=== PATIENT | male | born 1970 | race Asian ===

== ENCOUNTER 2023-12-30 11:28 | Inpatient (IN) | payer OTHER ==
[~2023-12-30] VITALS: Ht 165.1 cm; Wt 80.3 kg
[2023-12-30 11:45] VITALS: BP_SYST 149; PULSE 88; RESP 18; TEMP 98.4; O2SAT 98
[2023-12-30] MEDS: NACL 0.9% 1,000 ML IV ONE ×2 (12:16→14:11)
[2023-12-30] MEDS: KETOROLAC TROMETHAMINE 30 MG VIAL IVP ONE (12:16)
[2023-12-30] MEDS: ONDANSETRON HCL 4 MG/2 ML VIAL IVP ONE (12:16)
[2023-12-30 12:35] LABS: HEMATOCRIT 46.3 % (36-54); HEMOGLOBIN 15.9 g/dL (14.0-18.0); MEAN CORPUSCULAR HEMOGLOBIN 31 pg (27-31); MEAN CORPUSCULAR HGB CONC 35 % (32-36); MEAN CORPUSCULAR VOLUME 89 fL (79.0-98.0); PLATELET COUNT (AUTO) 272 K/uL (130-430); RED BLOOD CELL COUNT(AUTO) 5.19 MIL/uL (4.2-6.2); RED CELL DISTRIBUTION WIDTH 13.5 % (9.0-15.0); WHITE BLOOD COUNT (AUTO) 10.4 K/uL (4.8-10.8)
[2023-12-30 12:56] LABS: CALCIUM 8.9 mg/dL (8.4-11.0); CREATININE 1.33 mg/dL (0.55-1.30); POTASSIUM 3.7 mmol/L (3.5-5.1)
[2023-12-30 12:59] LABS: BILIRUBIN,DIRECT 0.2 mg/dL (0.0-0.3); TOTAL BILIRUBIN 0.7 mg/dL (0.0-1.0); TOTAL PROTEIN, SERUM 7.8 g/dL (6.4-8.3)
[2023-12-30 13:07] LABS: ALBUMIN 4.2 g/dL (3.4-4.8)
[2023-12-30] MEDS ORDERED: PIPERACILLIN/TAZOBACTAM 3.375 GM/VIAL (ZOSYN) IV ONE (13:59)
[2023-12-30 14:08] LABS: BASOPHILS % (MANUAL) 0 % (0-2); EOSINOPHILS % (MANUAL) 0 % (0-7); LYMPHOCYTES % (MANUAL) 7 % (20-46); MONOCYTES % (MANUAL) 1 % (0-11); PLATELET ESTIMATE ADEQUATE (ADEQUATE)
[2023-12-30] MEDS: PIPERACILLIN/TAZO 3.375 GM in NS 50 ML IV ONE (14:19)
[2023-12-30 14:28] LABS: BILIRUBIN,URINE NEGATIVE (NEGATIVE); CLARITY/URINE CLEAR (CLEAR); COLOR,URINE YELLOW (YELLOW); GLUCOSE,URINE NEGATIVE (NEGATIVE); KETONES,URINE 1+ (NEGATIVE); LEUKOCYTE ESTERASE ,URINE NEGATIVE (NEGATIVE); NITRITE, URINE NEGATIVE (NEGATIVE); PROTEIN URINE NEGATIVE (NEGATIVE); UROBILINOGEN,URINE 0.2 (0.2-1.0)
[2023-12-30 14:51] LABS: BLOOD, URINE TRACE (NEGATIVE)
[2023-12-30 14:52] LABS: BACTERIA,URINE None Seen /HPF (None Seen); MUCUS,URINE None Seen /LPF (None Seen); RBC,URINE 0-3 /HPF (0-3); WBC,URINE NONE SEEN /HPF (0-3)
[2023-12-30] MEDS ORDERED: MUPIROCIN 2% TOPICAL OINTMENT 22 GM NS PRN (16:15)
[2023-12-30] MEDS ORDERED: LORazepam 2 MG/ML VIAL IVP PRN (16:15)
[2023-12-30] MEDS ORDERED: ZOLPIDEM TARTRATE 5 MG TABLET PO PRN (16:15)
[2023-12-30] MEDS ORDERED: DOCUSATE SODIUM 100 MG CAPSULE PO PRN (16:15)
[2023-12-30] MEDS ORDERED: MAGNESIUM SULFATE 50 ML IV PRN (16:15)
[2023-12-30] MEDS ORDERED: ACETAMINOPHEN 500 MG TABLET PO PRN (16:45)
[2023-12-30] MEDS ORDERED: ROSU10TA29 PO (16:50)
[2023-12-30] MEDS ORDERED: LOSA50TA28 PO (16:50)
[2023-12-30] MEDS ORDERED: NEU300 PO (16:50)
[2023-12-30] MEDS: ACETAMINOPHEN 500 MG TABLET PO PRN ×2 (17:51→19:57)
[2023-12-30] MEDS: metroNIDAZOLE 500 mg/NS 100 ML IV ONE (18:05)
[2023-12-30] MEDS: NACL 0.9% 1,000 ML IV SCH (18:09)
[2023-12-30] MEDS: metroNIDAZOLE 500 mg/NS 100 ML IV SCH (22:00)
[2023-12-31] MEDS: MORPHINE 2 MG/ML INJ. SYRINGE IVP PRN (00:31)
[2023-12-31 04:07] LABS: BASOPHILS % (AUTO) 0.2 % (0.0-2.0); EOSINOPHILS % (AUTO) 0.1 % (0.0-4.0); HEMATOCRIT 37.6 % (36-54); HEMOGLOBIN 12.9 g/dL (14.0-18.0); LYMPHOCYTES # (AUTO) 0.8 K/uL (1.0-5.5); LYMPHOCYTES % (AUTO) 6.8 % (20.5-51.5); MEAN CORPUSCULAR HEMOGLOBIN 31 pg (27-31); MEAN CORPUSCULAR HGB CONC 34 % (32-36); MEAN CORPUSCULAR VOLUME 89 fL (79.0-98.0); MONOCYTES # (AUTO) 0.2 K/uL (0.0-1.0); MONOCYTES % (AUTO) 1.8 % (1.7-9.3); NEUTROPHILS # (AUTO) 11.4 K/uL (1.8-7.7); NEUTROPHILS % (AUTO) 91.1 % (40.0-70.0); PLATELET COUNT (AUTO) 221 K/uL (130-430); RED BLOOD CELL COUNT(AUTO) 4.22 MIL/uL (4.2-6.2); RED CELL DISTRIBUTION WIDTH 13.6 % (9.0-15.0); WHITE BLOOD COUNT (AUTO) 12.5 K/uL (4.8-10.8)
[2023-12-31 04:45] LABS: CALCIUM 7.4 mg/dL (8.4-11.0); CREATININE 1.22 mg/dL (0.55-1.30); POTASSIUM 3.3 mmol/L (3.5-5.1)
[2023-12-31] MEDS ORDERED: ROSU10TA2 PO (05:50)
[2023-12-31] MEDS ORDERED: LOSA-413 PO (05:50)
[2023-12-31] MEDS: MORPHINE 2 MG/ML INJ. SYRINGE ONE (07:01)
[2023-12-31 08:15] VITALS: BP_SYST 125; PULSE 110; RESP 20; TEMP 99.3; O2SAT 96
[2023-12-31 09:22] VITALS: BP_SYST 125; PULSE 3; RESP 18; TEMP 99
[2023-12-31] MEDS: POTASSIUM CHLORIDE 20 MEQ TABLET.ER PO PRN (11:23)
[2023-12-31 11:31] VITALS: BP_SYST 122; PULSE 107; RESP 16; TEMP 98.6; O2SAT 98
[2023-12-31] MEDS ORDERED: SIMETHICONE 80 MG TAB.CHEW PO PRN (12:15)
[2023-12-31] MEDS: 0.45% NACL 1,000 ML IV SCH (14:30)
[2023-12-31 16:50] VITALS: BP_SYST 122; PULSE 103; RESP 16; TEMP 98.6; O2SAT 98
[2023-12-31 20:00] VITALS: BP_SYST 129; PULSE 122; RESP 16; TEMP 100.6; O2SAT 96
[2023-12-31 22:00] VITALS: PULSE 106; TEMP 99.3
[2024-01-01] VITALS: BP_SYST 136; PULSE 114; RESP 16; TEMP 99.1; O2SAT 99
[2024-01-01] MEDS: MORPHINE 2 MG/ML INJ. SYRINGE IVP PRN (00:30)
[2024-01-01 04:33] LABS: BASOPHILS % (AUTO) 0.2 % (0.0-2.0); EOSINOPHILS % (AUTO) 0.2 % (0.0-4.0); HEMATOCRIT 38.6 % (36-54); HEMOGLOBIN 13.3 g/dL (14.0-18.0); LYMPHOCYTES # (AUTO) 0.8 K/uL (1.0-5.5); LYMPHOCYTES % (AUTO) 5.8 % (20.5-51.5); MEAN CORPUSCULAR HEMOGLOBIN 31 pg (27-31); MEAN CORPUSCULAR HGB CONC 34 % (32-36); MEAN CORPUSCULAR VOLUME 89 fL (79.0-98.0); MONOCYTES # (AUTO) 0.5 K/uL (0.0-1.0); MONOCYTES % (AUTO) 3.5 % (1.7-9.3); NEUTROPHILS # (AUTO) 12.9 K/uL (1.8-7.7); NEUTROPHILS % (AUTO) 90.3 % (40.0-70.0); PLATELET COUNT (AUTO) 214 K/uL (130-430); RED BLOOD CELL COUNT(AUTO) 4.35 MIL/uL (4.2-6.2); WHITE BLOOD COUNT (AUTO) 14.2 K/uL (4.8-10.8)
[2024-01-01 04:55] LABS: CALCIUM 8.2 mg/dL (8.4-11.0); CREATININE 1.07 mg/dL (0.55-1.30)
[2024-01-01 08:00] VITALS: BP_SYST 122; PULSE 111; RESP 18; TEMP 98.3; O2SAT 99
[2024-01-01] MEDS: POTASSIUM CHLORIDE 20 MEQ TABLET.ER PO ONE (09:26)
[2024-01-01 12:54] VITALS: BP_SYST 132; PULSE 109; RESP 17; TEMP 98.8; O2SAT 98
[2024-01-01] MEDS: ONDANSETRON HCL 4 MG/2 ML VIAL IVP PRN (15:32)
[2024-01-01 16:06] VITALS: BP_SYST 125; PULSE 110; RESP 18; TEMP 98.5; O2SAT 98
[2024-01-01] MEDS ORDERED: VANCOMYCIN HCL Non-Formulary 250 MG CAPSULE PO SCH (18:30)
[2024-01-01 20:00] VITALS: BP_SYST 144; PULSE 112; RESP 18; TEMP 99.3; O2SAT 96
[2024-01-01] MEDS: LOSARTAN POTASSIUM 25 MG TABLET PO ONE (21:27)
[2024-01-01] MEDS: VANCOMYCIN HCL ORAL SOLUTION 250 MG/5 ML, 80 ML PO SCH (21:28)
[2024-01-01] MEDS ORDERED: PIPERACILLIN/TAZO 3.375 GM in D5W 50 ML IV SCH (22:00)
[2024-01-01 22:15] LABS: BASOPHILS % (AUTO) 0.1 % (0.0-2.0); HEMATOCRIT 39.7 % (36-54); HEMOGLOBIN 13.7 g/dL (14.0-18.0); LYMPHOCYTES # (AUTO) 0.8 K/uL (1.0-5.5); LYMPHOCYTES % (AUTO) 5.2 % (20.5-51.5); MEAN CORPUSCULAR HEMOGLOBIN 31 pg (27-31); MEAN CORPUSCULAR HGB CONC 35 % (32-36); MEAN CORPUSCULAR VOLUME 88 fL (79.0-98.0); MONOCYTES # (AUTO) 0.6 K/uL (0.0-1.0); MONOCYTES % (AUTO) 3.9 % (1.7-9.3); NEUTROPHILS % (AUTO) 90.8 % (40.0-70.0); PLATELET COUNT (AUTO) 225 K/uL (130-430); RED CELL DISTRIBUTION WIDTH 13.8 % (9.0-15.0); WHITE BLOOD COUNT (AUTO) 15.5 K/uL (4.8-10.8)
[2024-01-01 22:27] LABS: CALCIUM 8.9 mg/dL (8.4-11.0); CREATININE 1.21 mg/dL (0.55-1.30); POTASSIUM 3.6 mmol/L (3.5-5.1)
[2024-01-02] VITALS: BP_SYST 134; PULSE 108; RESP 18; TEMP 98.9; O2SAT 97
[2024-01-02 05:44] LABS: BASOPHILS % (AUTO) 0.3 % (0.0-2.0); EOSINOPHILS # (AUTO) 0.1 K/uL (0.0-0.4); EOSINOPHILS % (AUTO) 0.7 % (0.0-4.0); HEMOGLOBIN 13.2 g/dL (14.0-18.0); LYMPHOCYTES # (AUTO) 1.1 K/uL (1.0-5.5); LYMPHOCYTES % (AUTO) 7.6 % (20.5-51.5); MEAN CORPUSCULAR HEMOGLOBIN 31 pg (27-31); MEAN CORPUSCULAR HGB CONC 35 % (32-36); MEAN CORPUSCULAR VOLUME 89 fL (79.0-98.0); MONOCYTES # (AUTO) 0.7 K/uL (0.0-1.0); MONOCYTES % (AUTO) 4.9 % (1.7-9.3); NEUTROPHILS # (AUTO) 12.8 K/uL (1.8-7.7); NEUTROPHILS % (AUTO) 86.5 % (40.0-70.0); PLATELET COUNT (AUTO) 240 K/uL (130-430); RED BLOOD CELL COUNT(AUTO) 4.29 MIL/uL (4.2-6.2); WHITE BLOOD COUNT (AUTO) 14.8 K/uL (4.8-10.8)
[2024-01-02 06:00] LABS: CALCIUM 8.5 mg/dL (8.4-11.0); CREATININE 1.03 mg/dL (0.55-1.30); POTASSIUM 3.5 mmol/L (3.5-5.1)
[2024-01-02 07:53] VITALS: BP_SYST 135; PULSE 105; RESP 18; TEMP 99.2; O2SAT 98
[2024-01-02 08:04] VITALS: O2SAT 97
[2024-01-02] MEDS: LOSARTAN POTASSIUM 25 MG TABLET PO SCH (09:04)
[2024-01-02] MEDS: LR 1,000 ML IV SCH (11:08)
[2024-01-02] MEDS: FIDAXOMICIN 200 MG TABLET PO ONE (11:26)
[2024-01-02 12:49] VITALS: BP_SYST 137; PULSE 106; RESP 17; TEMP 99; O2SAT 99
[2024-01-02] MEDS: metroNIDAZOLE 500 mg/NS 100 ML IV SCH (13:51)
[2024-01-02 14:19] VITALS: BP_SYST 135; PULSE 107; RESP 20; TEMP 98.5; O2SAT 97
[2024-01-02] MEDS ORDERED: FIDA200T PO (14:35)
[2024-01-02] MEDS ORDERED: ROCPM1 IV (14:35)
[2024-01-02] MEDS ORDERED: FLAPM500 IV (14:35)
[2024-01-02] MEDS: KCL 20 mEq in D5/0.45NS 1000mL 1,000 ML IV SCH (15:19)
[2024-01-02 16:34] VITALS: BP_SYST 136; PULSE 104; RESP 18; TEMP 99.1; O2SAT 98
[2024-01-02] MEDS ORDERED: FIDAXOMICIN 200 MG TABLET PO SCH (21:00)
== END 2024-01-02 16:40 | disposition short-term general hospital (02) | DRG 872 ==
LOC: SED 11:28 → SMU 16:09 → STU 01-02 10:00
PROVIDERS: ADMIT General Practice; ATTEND General Practice
DX: A41.9 Sepsis, unspecified organism (principal); A04.72 Enterocolitis due to Clostridium difficile, not specified as recurrent; K57.32 Diverticulitis of large intestine without perforation or abscess without bleeding; N17.9 Acute kidney failure, unspecified; I10 Essential (primary) hypertension; E78.00 Pure hypercholesterolemia, unspecified; E87.6 Hypokalemia; K59.00 Constipation, unspecified; N28.1 Cyst of kidney, acquired; K80.20 Calculus of gallbladder without cholecystitis without obstruction; Z86.16 Personal history of COVID-19; Z88.2 Allergy status to sulfonamides; Z79.899 Other long term (current) drug therapy
CPT/HCPCS: 36415; 71045; 74018; 80048; 80061; 80076; 81000; 81001; 81015; 82150; 83037; 83605; 83690; 83735; 84484; 85007; 85025; 85027; 87040; 87086; 87230; 99291; J0696; J1885; J1956; J2270; J2405; J2543; J3370; J3490; J7060